=== PATIENT | male | born 1995 | race American Indian/Alaskan Native ===

== ENCOUNTER 2018-08-28 01:49 | Emergency (ER) | payer OTHER ==
[2018-08-28] MEDS ORDERED: cefTRIAXone (Rocephin) 250 mg Inj IM ONE (02:29)
--- NOTE | 2018-08-28 02:39 | ED PDOC ---
HPI: Male Pain Time Seen by Provider: 08/28/18 02:09 Chief Complaint (Nursing): Male Genitourinary Chief Complaint (Provider): testicular pain History Per: Patient Onset/Duration Of Symptoms: Hrs Associated Symptoms: Urinary Symptoms (dysuria). denies: Fever, Chills Alleviating Factors: None Additional Complaint(s): 23 y/o M with hx of schizophrenia who was BIBA to ED for testicular pain. Patient states that he was walking today when he suddenly felt some pain in both of his testicles that became so bad that he fell to the floor. He states that he has been having burning on urination for the past couple of days and admits to having clear/whitish penile discharge. Denies sexual partners or activity. Denies fever, chills, night sweats. Past Medical History Reviewed: Historical Data, Nursing Documentation, Vital Signs Vital Signs: Last Vital Signs Temp 98.0 F 08/28/18 01:53 Pulse 94 H 08/28/18 01:53 Resp 17 08/28/18 01:53 BP 133/89 08/28/18 01:53 Pulse Ox 99 08/28/18 01:53 - Medical History PMH: No Chronic Diseases - Family History Family History: States: Unknown Family Hx - Immunization History Hx Tetanus Toxoid Vaccination: No Hx Influenza Vaccination: No Hx Pneumococcal Vaccination: No - Home Medications Home Medications: Ambulatory Orders Medication Instructions Recorded RX: Naproxen 375 mg PO BID PRN #20 tablet 07/17/18 Cephalexin [cephalexin] 500 mg PO BID 5 Days cap 08/28/18 RX: Ibuprofen [Motrin Tab] 600 mg PO Q6 PRN 5 Days tab 08/28/18 - Allergies Allergies/Adverse Reactions: Allergies Allergy/AdvReac Type Severity Reaction Status Date / Time No Known Allergies Allergy Verified 07/17/18 11:21 Review of Systems ROS Statement: Except As Marked, All Systems Reviewed And Found Negative Constitutional: Negative for: Fever, Chills, Sweats Genitourinary Male: Positive for: Dysuria, Frequency, Penile Discharge, Scrotal Pain. Negative for: Hematuria, Rash Skin: Negative for: Rash Physical Exam - Reviewed Nursing Documentation Reviewed: Yes Vital Signs Reviewed: Yes - Physical Exam Appears: Positive for: Non-toxic (Patient sleeping comfortably on my arrival ) Head Exam: Positive for: ATRAUMATIC Eye Exam: Positive for: EOMI, PERRL, Conjunctival injection (b/l) Male Genital Exam: Positive for: normal genitalia, no hernia. Negative for: epididymal tenderness, erythema, hernia mass, inguinal tenderness, lesions, scrotum tenderness (R), scrotum tenderness (L), testicular tenderness (R), testicular tenderness (L), urethral discharge Neurologic/Psych: Positive for: Alert, Oriented, Mood/Affect (flat) - ECG O2 Sat by Pulse Oximetry: 99 Medical Decision Making Medical Decision Making: Urinalysis, urine culture GC/Chlamydia RNA Rocephin 250mg IM Zithromax 1G PO x 1 U/A: small amount of leukocyte esterase, no nitrites, bacteria. Stable for d/c home with script for Keflex for UTI. Disposition - Clinical Impression Clinical Impression: Testicular/scrotal pain - Patient ED Disposition Is Patient to be Admitted: No Counseled Patient/Family Regarding: Studies Performed, Diagnosis, Need For Followup, Rx Given - Disposition Referrals: Tima Wagner MD [Medical Doctor] - Disposition: Routine/Home Disposition Time: 04:20 Condition: STABLE Additional Instructions: Return to ED if your scrotal pain worsens despite treatment or if you develop fevers/chills/night sweats. Take antibiotics as prescribed for urinary tract infection. Prescriptions: Cephalexin [cephalexin] 500 mg PO BID 5 Days cap RX: Ibuprofen [Motrin Tab] 600 mg PO Q6 PRN 5 Days tab PRN Reason: Pain, Moderate (4-7) Forms: [employer] (Tuvaluan) Print Language: YAKUT
[2018-08-28] MEDS ORDERED: cefTRIAXone (Rocephin) 250 mg Inj ONE (03:46)
[2018-08-28 04:04] LABS: URINE BILIRUBIN NEGATIVE (NEGATIVE); URINE BLOOD NEGATIVE (NEGATIVE); URINE CLARITY SLIGHTY-CLOUDY (Clear); URINE COLOR YELLOW (YELLOW); URINE GLUCOSE (UA) NEG (Normal); URINE LEUKOCYTE ESTERASE SMALL Leu/uL (Negative); URINE PROTEIN NEGATIVE (NEGATIVE); URINE UROBILINOGEN 0.2-1.0 mg/dL (0.2-1.0)
[2018-08-28 04:05] LABS: URINE BACTERIA FEW (<OCC)
[2018-08-28 04:25] VITALS: BP 132/86; PULSE 82; RESP 16; TEMP 98.1
[2018-08-28 06:03] VITALS: O2SAT 99
== END 2018-08-28 04:25 | disposition home or self-care (01) ==
LOC: H.ER 01:49
DX: N50.82 Scrotal pain (principal)
CPT/HCPCS: 81003; 87086; 87491; 87591; 96372; 99283; J0696

== ENCOUNTER 2018-10-01 22:25 | Emergency (ER) | payer OTHER ==
[2018-10-01 22:54] VITALS: BP 141/73; PULSE 94; RESP 16; TEMP 98.5; O2SAT 98
--- NOTE | 2018-10-01 23:09 | ED PDOC ---
HPI: Psych/Substance Abuse Time Seen by Provider: 10/01/18 22:56 Chief Complaint (Nursing): Psychiatric Evaluation Chief Complaint (Provider): Psychiatric Evaluation History Per: Patient History/Exam Limitations: no limitations Additional Complaint(s): Patient is a 23 year old male who presents to the ED requesting psychiatric admission. Patient reports that he has "not been feeling well". Patient will not elaborate further but does admit to racing thoughts and "feeling down". Patient states he has "mind issues". Patient reports a history of multiple psychiatric admissions. Patient denies SI, HI, A/V hallucinations. No physical complaints at present. PMD: Concepcion Past Medical History Reviewed: Historical Data, Nursing Documentation, Vital Signs Vital Signs: Last Vital Signs Temp 98.5 F 10/01/18 22:48 Pulse 94 H 10/01/18 22:48 Resp 16 10/01/18 22:48 BP 141/73 10/01/18 22:48 Pulse Ox 98 10/01/18 22:48 - Medical History PMH: Depression, Schizophrenia - Surgical History Surgical History: No Surg Hx - Family History Family History: States: Unknown Family Hx - Social History Drugs: Denies - Home Medications Home Medications: Ambulatory Orders Medication Instructions Recorded Naproxen 375 mg PO BID PRN #20 tablet 07/17/18 Cephalexin [cephalexin] 500 mg PO BID 5 Days cap 08/28/18 Ibuprofen [Motrin Tab] 600 mg PO Q6 PRN 5 Days tab 08/28/18 - Allergies Allergies/Adverse Reactions: Allergies Allergy/AdvReac Type Severity Reaction Status Date / Time No Known Allergies Allergy Verified 07/17/18 11:21 Review of Systems ROS Statement: Except As Marked, All Systems Reviewed And Found Negative Psych: Positive for: Other ("feeling down") Physical Exam - Reviewed Nursing Documentation Reviewed: Yes Vital Signs Reviewed: Yes - Physical Exam Appears: Positive for: Well, Non-toxic, No Acute Distress Head Exam: Positive for: NORMOCEPHALIC Skin: Positive for: Normal Color, Warm, Dry ENT: Positive for: Other (Mucus membranes moist. Airway patent, (-) stridor. ) Neck: Positive for: Painless ROM, Supple Cardiovascular/Chest: Positive for: Regular Rate, Rhythm Respiratory: Positive for: Normal Breath Sounds Gastrointestinal/Abdominal: Positive for: Soft. Negative for: Tenderness, Distended, Guarding Extremity: Positive for: Normal ROM. Negative for: Deformity Neurologic/Psych: Positive for: Alert, Oriented (x3), Gait (steady in ED). Negative for: Aphasia, Facial Droop - ECG O2 Sat by Pulse Oximetry: 98 (RA) Pulse Ox Interpretation: Normal Medical Decision Making Medical Decision Makin Initial Impression: psychiatric evaluation Plan: -Crisis evaluation -Re-evaluation 001 Per crisis evaluation, patient to be discharged with the diagnosis of Schizoaffective Disorder, per Dr Wise. On exam, patient remains AAOx3, in no acute distress. Vitals stable. Lab/Diagnostic results d/w the patient in great detail. Diagnosis of schizoaffective disorder d/w the patient. Based on history, exam and diagnostic results, plan will be for outpatient follow up as directed by crisis. Patient instructed to follow-up with pmd / referral provided / the clinic in 1- 2 days without fail. Return to the emergency room at any time for any new or worsening symptoms. Patient states he fully agrees with and understands discharge instructions. States that he agrees with the plan and disposition. Verbalized and repeated discharge instructions and plan. I have given the patient opportunity to ask any additional questions. Disposition - Clinical Impression Clinical Impression: Schizoaffective disorder - Patient ED Disposition Is Patient to be Admitted: No Counseled Patient/Family Regarding: Studies Performed, Diagnosis, Need For Followup - Disposition Referrals: [facility] [Outside] [facility] [Outside] Disposition: Routine/Home Disposition Time: 00:10 Condition: STABLE Additional Instructions: The emergency medical care you received today was directed at your acute symptoms. If you were prescribed any medication, please fill it and take as directed. It may take several days for your symptoms to resolve. Return to the Emergency Department if your symptoms worsen, do not improve, or if you have any other problems. Please contact your doctor in 2 days for re-evaluation and follow up / or call one of the physicians/clinics you have been referred to that are listed on the Patient Visit Information form that is included in your discharge packet. Bring any paperwork you were given at discharge with you along with any medications you are taking to your follow up visit. Our treatment cannot replace ongoing medical care by a primary care provider (PCP) outside of the emergency department. Instructions: Schizoaffective Disorder Forms: [email or web address] (Albanian) Print Language: MOSOTHO - POA Present On Arrival: None
== END 2018-10-02 01:15 | disposition home or self-care (01) ==
LOC: H.ER 22:25
DX: F25.9 Schizoaffective disorder, unspecified (principal); Z86.59 Personal history of other mental and behavioral disorders; Z00.8 Encounter for other general examination

== ENCOUNTER 2018-10-06 07:18 | Emergency (ER) | payer OTHER ==
[2018-10-06 07:22] VITALS: BMI 26.3
--- NOTE | 2018-10-06 07:45 | ED PDOC ---
HPI: Psych/Substance Abuse Time Seen by Provider: 10/06/18 07:37 Chief Complaint (Provider): Psychiatric evaluation History Per: Patient History/Exam Limitations: no limitations Current Symptoms Are (Timing): Still Present Associated Symptoms: denies: Depression, Suicidal Thoughts Additional Complaint(s): 23 year old homeless male, with a past medical history of schizophrenia, presents to the ED requesting psychiatric evaluation because he does not feel right in the mind and states he is not acting normally. He reports he has been compliant with his medications. Denies depression, suicidal ideation, or hallucinations. PMD: none Past Medical History Reviewed: Historical Data, Nursing Documentation, Vital Signs Vital Signs: Last Vital Signs Temp 97.6 F 10/06/18 07:21 Pulse 102 H 10/06/18 07:21 Resp 17 10/06/18 07:21 BP 124/70 10/06/18 07:21 Pulse Ox 96 10/06/18 07:21 - Medical History PMH: Depression, Schizophrenia Denies: Diabetes, Hepatitis, HIV, HTN, Seizures, Sexually Transmitted Disease - Surgical History Surgical History: No Surg Hx - Family History Family History: States: Unknown Family Hx - Immunization History Hx Tetanus Toxoid Vaccination: No Hx Influenza Vaccination: No Hx Pneumococcal Vaccination: No - Home Medications Home Medications: Ambulatory Orders Medication Instructions Recorded Naproxen 375 mg PO BID PRN #20 tablet 07/17/18 Cephalexin [cephalexin] 500 mg PO BID 5 Days cap 08/28/18 Ibuprofen [Motrin Tab] 600 mg PO Q6 PRN 5 Days tab 08/28/18 - Allergies Allergies/Adverse Reactions: Allergies Allergy/AdvReac Type Severity Reaction Status Date / Time No Known Allergies Allergy Verified 07/17/18 11:21 Review of Systems ROS Statement: Except As Marked, All Systems Reviewed And Found Negative Psych: Negative for: Depression, Suicidal ideation, Other (hallucinations) Physical Exam - Reviewed Nursing Documentation Reviewed: Yes Vital Signs Reviewed: Yes - Physical Exam Appears: Positive for: No Acute Distress. Negative for: Uncomfortable Head Exam: Positive for: ATRAUMATIC, NORMOCEPHALIC Skin: Positive for: Normal Color, Dry Eye Exam: Positive for: Normal appearance, EOMI Neck: Positive for: Normal, Painless ROM Extremity: Positive for: Normal ROM Neurologic/Psych: Positive for: Alert, Oriented (x3), Gait (steady) - ECG O2 Sat by Pulse Oximetry: 96 (RA) Pulse Ox Interpretation: Normal Medical Decision Making Medical Decision Making: Initial Impression: Request for psychiatric evaluation. Differential includes schizophrenia. Initial Plan: crisis eval Per general scrap worker patient is discharged with dx anxiety. Scribe Attestation: Documented by Franko Rogers acting as a scribe for John Menezes MD. Provider Scribe Attestation: All medical record entries made by the Scribe were at my direction and personally dictated by me. I have reviewed the chart and agree that the record accurately reflects my personal performance of the history, physical exam, medical decision making, and the department course for this patient. I have also personally directed, reviewed, and agree with the discharge instructions and disposition. Disposition - Clinical Impression Clinical Impression: Anxiety - Patient ED Disposition Is Patient to be Admitted: No Doctor Will See Patient In The: Office Counseled Patient/Family Regarding: Studies Performed, Diagnosis, Need For Followup - Disposition Referrals: [facility] [Outside] Disposition: Routine/Home Disposition Time: 10:24 Condition: GOOD Additional Instructions: BETO BAIN, thank you for letting us take care of you today. Your provider was John Menezes MD and you were treated for CRISIS EVAL. The emergency medical care you received today was directed at your acute symptoms. If you were prescribed any medication, please fill it and take as directed. It may take several days for your symptoms to resolve. Return to the Emergency Department if your symptoms worsen, do not improve, or if you have any other problems. Please contact your doctor or call one of the physicians/clinics you have been referred to that are listed on the Patient Visit Information form that is included in your discharge packet. Bring any paperwork you were given at discharge with you along with any medications you are taking to your follow up visit. Our treatment cannot replace ongoing medical care by a primary care provider outside of the emergency department. [facility] your care today. If you had an X-Ray or CT scan: A Radiologist will review the ED reading if any change in treatment is needed we will contact you. If you had a blood, urine, or wound culture: It will take several days for the results, if any change in treatment is needed we will contact you. If you had an STI test: It will take 48 hours for the results. Please call after 1 week if you have not heard back. Instructions: Anxiety, Adult (DC)
[2018-10-06 11:15] VITALS: BP 128/67; PULSE 76; RESP 18; TEMP 98; O2SAT 99
== END 2018-10-06 11:12 | disposition home or self-care (01) ==
LOC: H.ER 07:18
DX: F41.9 Anxiety disorder, unspecified (principal)

== ENCOUNTER 2018-10-10 22:04 | Emergency (ER) | payer OTHER ==
[2018-10-10 22:04] VITALS: BMI 26.3
[2018-10-10 22:37] VITALS: BP 121/79; PULSE 82; RESP 16; TEMP 98; O2SAT 98
--- NOTE | 2018-10-10 23:32 | ED PDOC ---
HPI: Psych/Substance Abuse Time Seen by Provider: 10/10/18 22:40 Chief Complaint (Nursing): Psychiatric Evaluation Chief Complaint (Provider): Psychiatric Evaluation History Per: Patient History/Exam Limitations: no limitations Associated Symptoms: Paranoia. denies: Suicidal Thoughts, Suicidal Plan Additional Complaint(s): 23 y/o male with history of schizophrenia reports having visual hallucinations. Patient reports he sees shadows. He also reports feeling paranoid, feels as if someone is watching him, while watching TV. He denies HI or SI but does report feeling aggressive at times. Patient states he is somewhat compliant with invega consta. Past Medical History Reviewed: Historical Data, Nursing Documentation, Vital Signs Vital Signs: Last Vital Signs Temp 98.0 F 10/10/18 22:35 Pulse 82 10/10/18 22:35 Resp 16 10/10/18 22:35 BP 121/79 10/10/18 22:35 Pulse Ox 98 10/10/18 22:35 - Medical History PMH: Depression, Schizophrenia Denies: Diabetes, Hepatitis, HIV, HTN, Seizures, Sexually Transmitted Disease - Surgical History Surgical History: No Surg Hx - Family History Family History: States: Unknown Family Hx - Social History Current smoker - smoking cessation education provided: Yes (occasional) - Immunization History Hx Tetanus Toxoid Vaccination: No Hx Influenza Vaccination: No Hx Pneumococcal Vaccination: No - Home Medications Home Medications: Ambulatory Orders Medication Instructions Recorded Naproxen 375 mg PO BID PRN #20 tablet 07/17/18 Cephalexin [cephalexin] 500 mg PO BID 5 Days cap 08/28/18 Ibuprofen [Motrin Tab] 600 mg PO Q6 PRN 5 Days tab 08/28/18 - Allergies Allergies/Adverse Reactions: Allergies Allergy/AdvReac Type Severity Reaction Status Date / Time No Known Allergies Allergy Verified 07/17/18 11:21 Review of Systems ROS Statement: Except As Marked, All Systems Reviewed And Found Negative Psych: Positive for: Psychosis (visual), Other (aggression). Negative for: Suicidal ideation Physical Exam - Reviewed Nursing Documentation Reviewed: Yes Vital Signs Reviewed: Yes - Physical Exam Appears: Positive for: Well, Non-toxic, No Acute Distress Head Exam: Positive for: ATRAUMATIC, NORMOCEPHALIC Skin: Positive for: Normal Color, Warm, Dry Eye Exam: Positive for: EOMI, Normal appearance, PERRL Neck: Positive for: Normal, Painless ROM, Supple Cardiovascular/Chest: Positive for: Regular Rate, Rhythm. Negative for: Murmur Respiratory: Positive for: Normal Breath Sounds. Negative for: Respiratory Distress Gastrointestinal/Abdominal: Positive for: Normal Exam, Soft. Negative for: Tenderness Back: Positive for: Normal Inspection. Negative for: L CVA Tenderness, R CVA Tenderness, Vertebral Tenderness Extremity: Positive for: Normal ROM. Negative for: Pedal Edema, Deformity Neurologic/Psych: Positive for: Alert, Oriented. Negative for: Motor/Sensory Deficits - ECG O2 Sat by Pulse Oximetry: 98 (RA) Pulse Ox Interpretation: Normal Medical Decision Making Medical Decision Making: Time: 22:47 Initial Impression: 23 y/o male with crisis evaluation Initial Plan: * Crisis evaluation 00:05 Patient was evaluated by Crisis. Patient is stable for discharge. Diagnosis is schizophrenia. --- Scribe Attestation: Documented by John Grimm acting as a scribe for Govind Lutz MD. Provider Scribe Attestation: All medical record entries made by the Scribe were at my direction and personally dictated by me. I have reviewed the chart and agree that the record accurately reflects my personal performance of the history, physical exam, medical decision making, and the department course for this patient. I have also personally directed, reviewed, and agree with the discharge instructions and disposition. Disposition - Clinical Impression Clinical Impression: Schizophrenia - Patient ED Disposition Is Patient to be Admitted: No - Disposition Disposition: Routine/Home Disposition Time: 00:05 Condition: STABLE Additional Instructions: BETO BAIN, thank you for letting us take care of you today. Your provider was Govind Lutz MD and you were treated for PSYCH EVAL. The emergency medical care you received today was directed at your acute symptoms. If you were prescribed any medication, please fill it and take as directed. It may take several days for your symptoms to resolve. Return to the Emergency Department if your symptoms worsen, do not improve, or if you have any other problems. Please contact your doctor or call one of the physicians/clinics you have been referred to that are listed on the Patient Visit Information form that is included in your discharge packet. Bring any paperwork you were given at disch arge with you along with any medications you are taking to your follow up visit. Our treatment cannot replace ongoing medical care by a primary care provider outside of the emergency department. Thank you for allowing the [email or web address] team to be part of your care today. If you had an X-Ray or CT scan: A Radiologist will review the ED reading if any change in treatment is needed we will contact you. If you had a blood, urine, or wound culture: It will take several days for the results, if any change in treatment is needed we will contact you. If you had an STI test: It will take 48 hours for the results. Please call after 1 week if you have not heard back. Instructions: Schizophrenia Forms: [employer] (Botswanan)
== END 2018-10-11 00:17 | disposition home or self-care (01) ==
LOC: H.ER 22:04
DX: F20.9 Schizophrenia, unspecified (principal)

== ENCOUNTER 2018-10-11 22:37 | Emergency (ER) | payer OTHER ==
[2018-10-11 22:37] VITALS: BMI 26.3
[2018-10-11 23:01] VITALS: TEMP 97.8
--- NOTE | 2018-10-11 23:15 | ED PDOC ---
HPI: Psych/Substance Abuse Time Seen by Provider: 10/11/18 23:09 Chief Complaint (Nursing): Psychiatric Evaluation Chief Complaint (Provider): "I'm stressing out" Additional Complaint(s): Pt reports he is stressing out since becoming homeless couple weeks ago. Denies suicidal or homicidal ideation. Past Medical History Reviewed: Nursing Documentation, Vital Signs Vital Signs: Last Vital Signs Temp 97.8 F 10/11/18 22:57 Pulse 78 10/11/18 22:57 Resp 18 10/11/18 22:57 BP 120/83 10/11/18 22:57 Pulse Ox 99 10/11/18 22:57 - Medical History PMH: Depression, Schizophrenia Denies: Diabetes, Hepatitis, HIV, HTN, Seizures, Sexually Transmitted Disease - Family History Family History: States: Unknown Family Hx - Immunization History Hx Tetanus Toxoid Vaccination: No Hx Influenza Vaccination: No Hx Pneumococcal Vaccination: No - Home Medications Home Medications: Ambulatory Orders Medication Instructions Recorded Naproxen 375 mg PO BID PRN #20 tablet 07/17/18 Cephalexin [cephalexin] 500 mg PO BID 5 Days cap 08/28/18 Ibuprofen [Motrin Tab] 600 mg PO Q6 PRN 5 Days tab 08/28/18 - Allergies Allergies/Adverse Reactions: Allergies Allergy/AdvReac Type Severity Reaction Status Date / Time No Known Allergies Allergy Verified 10/13/18 01:45 Review of Systems ROS Statement: Except As Marked, All Systems Reviewed And Found Negative Psych: Positive for: Anxiety Physical Exam - Reviewed Nursing Documentation Reviewed: Yes Vital Signs Reviewed: Yes - Physical Exam Appears: Positive for: Well, No Acute Distress Skin: Positive for: Normal Color, Warm, Dry Eye Exam: Positive for: Normal appearance, EOMI, PERRL Cardiovascular/Chest: Positive for: Regular Rate, Rhythm Respiratory: Positive for: Normal Breath Sounds Neurologic/Psych: Positive for: Alert, Oriented - ECG O2 Sat by Pulse Oximetry: 99 Medical Decision Making Medical Decision Makin yo male with stress. - Crisis evaluation Disposition - Clinical Impression Clinical Impression: Schizophrenia - Disposition Disposition: Transfer of Care Disposition Time: 00:00 Condition: STABLE Instructions: Schizophrenia Forms: [employer] (Macedonian) Patient Signed Over To: Govind Lutz
--- NOTE | 2018-10-12 00:06 | ED PDOC ---
- ECG O2 Sat by Pulse Oximetry: 99 Medical Decision Making Medical Decision Making: Time: 00:00 --Patient endorsed to provider by Dr. Nash, pending crisis evaluation and re- eval. Time: 4 --Patient was evaluated by forensic social worker and deemed medically stable for discharge home, as per Dr. Orlando. Counseling was provided and all questions were answered regarding diagnosis. There is agreement to discharge plan. Return if symptoms persist or worsen. Clinical Impression: Schizophrenia Scribe Attestation: Documented by Johnna Gamez, acting as a scribe for Govind Lutz MD. Provider Scribe Attestation: All medical record entries made by the Scribe were at my direction and personally dictated by me. I have reviewed the chart and agree that the record accurately reflects my personal performance of the history, physical exam, medical decision making, and the department course for this patient. I have also personally directed, reviewed, and agree with the discharge instructions and disposition. Disposition Counseled Patient/Family Regarding: Studies Performed, Diagnosis - Clinical Impression Clinical Impression: Schizophrenia - POA Present On Arrival: None - Disposition Disposition: Routine/Home Disposition Time: 01:54 Condition: STABLE Instructions: Schizophrenia Forms: [email or web address] (Montenegrin)
[2018-10-12 04:51] VITALS: BP 124/81; PULSE 79; RESP 16
[2018-10-13 16:55] VITALS: O2SAT 99
== END 2018-10-12 04:52 | disposition home or self-care (01) ==
LOC: H.ER 22:37
DX: F20.9 Schizophrenia, unspecified (principal); Z59.0 Homelessness; F32.9 Major depressive disorder, single episode, unspecified

== ENCOUNTER 2018-10-13 01:27 | Emergency (ER) | payer OTHER ==
[2018-10-13 01:45] VITALS: BMI 27.6
[2018-10-13 01:47] VITALS: BP 122/62; PULSE 85; RESP 18; TEMP 97.9; O2SAT 98
--- NOTE | 2018-10-13 05:37 | ED PDOC ---
HPI: Psych/Substance Abuse Time Seen by Provider: 10/13/18 01:49 Chief Complaint (Nursing): Psychiatric Evaluation History Per: Patient Suicide/Self Injury Attempted (Context): None Involuntary Hold By: None Additional Complaint(s): Hx of schiophrenia presenting with "i need to sleep". Patient has no other complaints, denies hearing voices, suicidal or homicidal ideation. Past Medical History Reviewed: Historical Data, Nursing Documentation, Vital Signs Vital Signs: Last Vital Signs Temp 97.9 F 10/13/18 01:45 Pulse 85 10/13/18 01:45 Resp 18 10/13/18 01:45 BP 122/62 10/13/18 01:45 Pulse Ox 98 10/13/18 01:45 - Medical History PMH: Depression, Schizophrenia Denies: Diabetes, Hepatitis, HIV, HTN, Chronic Kidney Disease, Seizures, Sexually Transmitted Disease - Family History Family History: States: Unknown Family Hx - Immunization History Hx Tetanus Toxoid Vaccination: No Hx Influenza Vaccination: No Hx Pneumococcal Vaccination: No - Home Medications Home Medications: Ambulatory Orders Medication Instructions Recorded Naproxen 375 mg PO BID PRN #20 tablet 07/17/18 Cephalexin [cephalexin] 500 mg PO BID 5 Days cap 08/28/18 Ibuprofen [Motrin Tab] 600 mg PO Q6 PRN 5 Days tab 08/28/18 - Allergies Allergies/Adverse Reactions: Allergies Allergy/AdvReac Type Severity Reaction Status Date / Time No Known Allergies Allergy Verified 10/13/18 01:45 Review of Systems ROS Statement: Except As Marked, All Systems Reviewed And Found Negative Physical Exam - Reviewed Nursing Documentation Reviewed: Yes Vital Signs Reviewed: Yes - Physical Exam Appears: Positive for: Well, Non-toxic, No Acute Distress Head Exam: Positive for: ATRAUMATIC, NORMAL INSPECTION, NORMOCEPHALIC Skin: Positive for: Normal Color, Warm, DRY Eye Exam: Positive for: EOMI, Normal appearance, PERRL ENT: Positive for: Normal ENT Inspection Neck: Positive for: Normal, Painless ROM Cardiovascular/Chest: Positive for: Regular Rate, Rhythm Respiratory: Positive for: CNT, Normal Breath Sounds Gastrointestinal/Abdominal: Positive for: Normal Exam, Soft Back: Positive for: Normal Inspection Extremity: Positive for: Normal ROM Neurologic/Psych: Positive for: Alert, java architect II-XII, Oriented, Mood/Affect ( Normal). Negative for: Motor/Sensory Deficits - ECG O2 Sat by Pulse Oximetry: 98 Pulse Ox Interpretation: Normal Medical Decision Making Medical Decision MakinAM Patient presenting with bed seeking behavior Stable for discharge No acute medical/psychiatric intervention necessary at this time Disposition - Clinical Impression Clinical Impression: Schizoaffective disorder - Patient ED Disposition Is Patient to be Admitted: No - Disposition Referrals: [facility] [Outside] Disposition: Routine/Home Disposition Time: 05:37 Condition: STABLE Instructions: Schizoaffective Disorder
== END 2018-10-13 06:37 | disposition home or self-care (01) ==
LOC: H.ER 01:27
DX: F25.9 Schizoaffective disorder, unspecified (principal)

== ENCOUNTER 2018-10-19 20:26 | Emergency (ER) | payer OTHER ==
[2018-10-19 21:14] VITALS: BMI 27.4
[2018-10-19 21:16] VITALS: BP 117/73; PULSE 80; RESP 18; TEMP 98.3; O2SAT 98
--- NOTE | 2018-10-19 23:06 | ED PDOC ---
HPI: Psych/Substance Abuse Time Seen by Provider: 10/19/18 22:45 Chief Complaint (Nursing): Psychiatric Evaluation History Per: Patient Onset/Duration Of Symptoms: Unknown Current Symptoms Are (Timing): Still Present Suicide/Self Injury Attempted (Context): None Modifying Factor(s): None Associated Symptoms: denies: Suicidal Thoughts Additional Complaint(s): Admits to auditory hallucinations earlier today but unclear as to duration of hallucinations. denies SI/HI. States that he has high BP and has difficulty concentrating Past Medical History Vital Signs: Last Vital Signs Temp 98.3 F 10/19/18 21:14 Pulse 80 10/19/18 21:14 Resp 18 10/19/18 21:14 BP 117/73 10/19/18 21:14 Pulse Ox 98 10/19/18 21:14 - Medical History PMH: Depression, Schizophrenia Denies: Diabetes, Hepatitis, HIV, HTN, Chronic Kidney Disease, Seizures, Sexually Transmitted Disease - Family History Family History: States: Unknown Family Hx - Immunization History Hx Tetanus Toxoid Vaccination: No Hx Influenza Vaccination: No Hx Pneumococcal Vaccination: No - Home Medications Home Medications: Ambulatory Orders Medication Instructions Recorded Naproxen 375 mg PO BID PRN #20 tablet 07/17/18 Cephalexin [cephalexin] 500 mg PO BID 5 Days cap 08/28/18 Ibuprofen [Motrin Tab] 600 mg PO Q6 PRN 5 Days tab 08/28/18 - Allergies Allergies/Adverse Reactions: Allergies Allergy/AdvReac Type Severity Reaction Status Date / Time No Known Allergies Allergy Verified 10/19/18 21:13 Review of Systems ROS Statement: Except As Marked, All Systems Reviewed And Found Negative Physical Exam - Reviewed Nursing Documentation Reviewed: Yes Vital Signs Reviewed: Yes - Physical Exam Appears: Positive for: Non-toxic, No Acute Distress Head Exam: Positive for: ATRAUMATIC, NORMAL INSPECTION, NORMOCEPHALIC Skin: Positive for: Normal Color, Warm, DRY Eye Exam: Positive for: EOMI, Normal appearance, PERRL ENT: Positive for: Normal ENT Inspection Neck: Positive for: Normal, Painless ROM Cardiovascular/Chest: Positive for: Regular Rate, Rhythm Respiratory: Positive for: CNT, Normal Breath Sounds Gastrointestinal/Abdominal: Positive for: Normal Exam, Soft Back: Positive for: Normal Inspection Extremity: Positive for: Normal ROM Neurologic/Psych: Positive for: Alert, Oriented - ECG O2 Sat by Pulse Oximetry: 98 Disposition - Disposition
--- NOTE | 2018-10-20 00:18 | ED PDOC ---
- Laboratory Results Result Diagrams: 10/19/18 23:25 10/19/18 23:25 - ECG O2 Sat by Pulse Oximetry: 98 (RA) Pulse Ox Interpretation: Normal Medical Decision Making Medical Decision Making: Time: 0000 -- Patient endorsed to me by Dr. Adams, pending labs, crisis evaluation and final ER disposition. 0300 -Sleeping in ER 0600 -Cleared by Dr. Wise with diagnosis: schizophrenia Scribe Attestation: Documented by Shandra Marsh, acting as a scribe for Maikol Monahan MD. Provider Scribe Attestation: All medical record entries made by the Scribe were at my direction and personally dictated by me. I have reviewed the chart and agree that the record accurately reflects my personal performance of the history, physical exam, medical decision making, and the department course for this patient. I have also personally directed, reviewed, and agree with the discharge instructions and disposition. Disposition - Clinical Impression Clinical Impression: Schizophrenia - POA Present On Arrival: None - Disposition Referrals: Liliya Grover MD [Family Provider] - Disposition: Routine/Home Disposition Time: 06:00 Condition: IMPROVED Instructions: Schizophrenia Forms: [employer] (Croatian)
[2018-10-20 00:25] LABS: BASO % 0.4 % (0.0-2.0); EOS # 0.3 K/uL (0.0-0.7); EOS % 5.2 % (0.0-4.0); HEMOGLOBIN 13.6 g/dL (12.0-18.0); LYMPH # 3.5 K/uL (1.0-4.3); LYMPH % 55.1 % (20.0-40.0); MEAN CELL VOLUME 86.2 fl (80.0-94.0); MEAN CORPUSCULAR HEMOGLOBIN 28.5 pg (27.0-31.0); MEAN CORPUSCULAR HGB CONC 33.1 g/dL (33.0-37.0); MONO # 0.6 K/uL (0.0-0.8); MONO % 9.8 % (0.0-10.0); NEUT # 1.9 K/uL (1.8-7.0); NEUT % 29.5 % (50.0-75.0); NRBC % 0.1 % (0.0-0.0); RBC 4.78 Mil/uL (4.40-5.90); RED CELL DISTRIBUTION WIDTH 13.9 % (11.5-14.5); WHITE BLOOD COUNT 6.4 K/uL (4.8-10.8)
[2018-10-20 00:41] LABS: ALB/GLOB RATIO 1.4 (1.0-2.1); ALBUMIN 4.1 g/dL (3.5-5.0); ALT/SGPT 52 U/L (21-72); AST/SGOT 41 U/L (17-59); BLOOD UREA NITROGEN 18 mg/dl (9-20); GFR NON-AFRICAN AMERICAN > 60
[2018-10-20 00:54] LABS: BARBITURATES, UR NEGATIVE (NEGATIVE); BENZODIAZEPINES, UR NEGATIVE (NEGATIVE); OPIATES, UR NEGATIVE (NEGATIVE); PHENCYCLIDINE, UR NEGATIVE (NEGATIVE)
--- NOTE | 2018-10-20 12:55 | CARD ---
APPROVED REPORT Date of service: 10/20/2018 EKG Measurement Heart [id number] <Conclusion> Sinus rhythm with marked sinus arrhythmia Normal Electrocardiogram
== END 2018-10-20 06:23 | disposition home or self-care (01) ==
LOC: H.ER 20:26
DX: F20.9 Schizophrenia, unspecified (principal); F32.9 Major depressive disorder, single episode, unspecified

== ENCOUNTER 2018-10-21 22:20 | Emergency (ER) | payer OTHER ==
[2018-10-21 22:20] VITALS: BMI 27.4
[2018-10-21 22:57] VITALS: TEMP 98.2; O2SAT 99
--- NOTE | 2018-10-22 01:01 | ED PDOC ---
HPI: Psych/Substance Abuse Time Seen by Provider: 10/21/18 22:57 Chief Complaint (Nursing): Psychiatric Evaluation Chief Complaint (Provider): Psychiatric Evaluation History Per: Patient History/Exam Limitations: no limitations Onset/Duration Of Symptoms: Hrs Current Symptoms Are (Timing): Still Present Additional Complaint(s): 23 y/o homeless male with a PMHx of Schizophrenia and Depression presents to the ED for psychiatric evaluation. Patient is known to provider and ED staff for bed seeking behavior. Patient reports of being nervous and anxious. PMD: no provider Past Medical History Reviewed: Historical Data, Nursing Documentation, Vital Signs Vital Signs: Last Vital Signs Temp 98.2 F 10/21/18 22:55 Pulse 93 H 10/21/18 22:55 Resp 18 10/21/18 22:55 BP 149/64 10/21/18 22:55 Pulse Ox 99 10/21/18 22:55 - Medical History PMH: Depression, Schizophrenia Denies: Diabetes, Hepatitis, HIV, HTN, Chronic Kidney Disease, Seizures, Sexually Transmitted Disease - Surgical History Surgical History: No Surg Hx - Family History Family History: States: Unknown Family Hx - Living Arrangements Living Arrangements: Other (HOMELESS) - Immunization History Hx Tetanus Toxoid Vaccination: No Hx Influenza Vaccination: No Hx Pneumococcal Vaccination: No - Home Medications Home Medications: Ambulatory Orders Medication Instructions Recorded Naproxen 375 mg PO BID PRN #20 tablet 07/17/18 Cephalexin [cephalexin] 500 mg PO BID 5 Days cap 08/28/18 Ibuprofen [Motrin Tab] 600 mg PO Q6 PRN 5 Days tab 08/28/18 - Allergies Allergies/Adverse Reactions: Allergies Allergy/AdvReac Type Severity Reaction Status Date / Time No Known Allergies Allergy Verified 10/19/18 21:13 Review of Systems ROS Statement: Except As Marked, All Systems Reviewed And Found Negative Psych: Positive for: Anxiety Physical Exam - Reviewed Nursing Documentation Reviewed: Yes Vital Signs Reviewed: Yes - Physical Exam Appears: Positive for: No Acute Distress Head Exam: Positive for: ATRAUMATIC, NORMOCEPHALIC Skin: Positive for: Normal Color, Warm, Dry Eye Exam: Positive for: Normal appearance, EOMI, PERRL Neck: Positive for: Normal, Painless ROM Cardiovascular/Chest: Positive for: Regular Rate, Rhythm. Negative for: Murmur Respiratory: Positive for: Normal Breath Sounds. Negative for: Respiratory Distress Gastrointestinal/Abdominal: Positive for: Normal Exam, Soft. Negative for: Tenderness Back: Positive for: Normal Inspection. Negative for: L CVA Tenderness, R CVA Tenderness, Vertebral Tenderness Extremity: Positive for: Normal ROM. Negative for: Pedal Edema, Deformity Neurologic/Psych: Positive for: Alert, Oriented. Negative for: Motor/Sensory Deficits - ECG O2 Sat by Pulse Oximetry: 99 (RA) Pulse Ox Interpretation: Normal Medical Decision Making Medical Decision Making: Time: 2257 Impression: 23 y/o homeless male presenting with bed seeking behavior Plan: -- EKG -- Crisis Evaluation Time: 336 -- Patient evaluated by crisis who state patient is stable for discharge home with a diagnosis of schizophrenia. Scribe Attestation: Documented by Shandra Marsh, acting as a scribe for Govind Lutz MD. Provider Scribe Attestation: All medical record entries made by the Scribe were at my direction and personally dictated by me. I have reviewed the chart and agree that the record accurately reflects my personal performance of the history, physical exam, medical decision making, and the department course for this patient. I have also personally directed, reviewed, and agree with the discharge instructions and disposition. Disposition - Clinical Impression Clinical Impression: Schizophrenia - Patient ED Disposition Is Patient to be Admitted: No Counseled Patient/Family Regarding: Studies Performed, Diagnosis - Disposition Disposition: Routine/Home Disposition Time: 03:37 Condition: STABLE Instructions: Schizophrenia Forms: [employer] (Surinamese)
[2018-10-22 06:56] VITALS: BP 137/63; PULSE 81; RESP 17
--- NOTE | 2018-10-22 09:14 | CARD ---
APPROVED REPORT Date of service: 10/22/2018 EKG Measurement Heart [id number] <Conclusion> Normal sinus rhythm Normal ECG
== END 2018-10-22 05:52 | disposition home or self-care (01) ==
LOC: H.ER 22:20
DX: F20.9 Schizophrenia, unspecified (principal); Z86.59 Personal history of other mental and behavioral disorders; Z59.0 Homelessness; Z00.8 Encounter for other general examination

== ENCOUNTER 2018-10-25 21:51 | Emergency (ER) | payer OTHER ==
[2018-10-25 21:52] VITALS: BMI 27.4
[2018-10-25 22:05] VITALS: RESP 18; O2SAT 99
--- NOTE | 2018-10-25 23:05 | ED PDOC ---
HPI: Psych/Substance Abuse Time Seen by Provider: 10/25/18 22:17 Chief Complaint (Nursing): Psychiatric Evaluation Chief Complaint (Provider): Psychiatric Evaluation History Per: Patient History/Exam Limitations: no limitations Current Symptoms Are (Timing): Still Present Additional Complaint(s): 23 y/o homeless male with a PMHx of Schizophrenia and Depression presents to the ED for psychiatric evaluation. Patient is known to provider and ED staff for bed seeking behavior. Patient reports auditory hallucinations. PMD: no provider Past Medical History Reviewed: Historical Data, Nursing Documentation, Vital Signs Vital Signs: Last Vital Signs Temp 98.3 F 10/25/18 22:03 Pulse 86 10/25/18 22:03 Resp 18 10/25/18 22:03 BP 142/76 10/25/18 22:03 Pulse Ox 99 10/25/18 22:03 - Medical History PMH: Depression, Schizophrenia Denies: Diabetes, Hepatitis, HIV, HTN, Chronic Kidney Disease, Seizures, Sexually Transmitted Disease - Surgical History Surgical History: No Surg Hx - Family History Family History: States: Unknown Family Hx - Immunization History Hx Tetanus Toxoid Vaccination: No Hx Influenza Vaccination: No Hx Pneumococcal Vaccination: No - Home Medications Home Medications: Ambulatory Orders Medication Instructions Recorded Naproxen 375 mg PO BID PRN #20 tablet 07/17/18 Cephalexin [cephalexin] 500 mg PO BID 5 Days cap 08/28/18 Ibuprofen [Motrin Tab] 600 mg PO Q6 PRN 5 Days tab 08/28/18 - Allergies Allergies/Adverse Reactions: Allergies Allergy/AdvReac Type Severity Reaction Status Date / Time No Known Allergies Allergy Verified 10/19/18 21:13 Review of Systems ROS Statement: Except As Marked, All Systems Reviewed And Found Negative Psych: Positive for: Other (auditory hallucinations) Physical Exam - Reviewed Nursing Documentation Reviewed: Yes Vital Signs Reviewed: Yes - Physical Exam Appears: Positive for: Non-toxic, No Acute Distress Head Exam: Positive for: ATRAUMATIC, NORMOCEPHALIC Skin: Positive for: Normal Color, Warm, Dry Eye Exam: Positive for: EOMI, Normal appearance, PERRL Neck: Positive for: Normal, Painless ROM Cardiovascular/Chest: Positive for: Regular Rate, Rhythm Respiratory: Positive for: Normal Breath Sounds. Negative for: Respiratory Distress Gastrointestinal/Abdominal: Positive for: Normal Exam, Soft. Negative for: Tenderness Back: Positive for: Normal Inspection Extremity: Positive for: Normal ROM (upper and lower). Negative for: Pedal Edema, Deformity Neurologic/Psych: Positive for: Alert, Oriented (x3). Negative for: Motor/Sensory Deficits - ECG O2 Sat by Pulse Oximetry: 99 (RA) Pulse Ox Interpretation: Normal Medical Decision Making Medical Decision Making: Time: 2217 Impression: 23 y/o homeless male presenting with bed seeking behavior Plan: -- Crisis Evaluation Time: 141 --Patient cleared by Crisis. Stable for discharge home, diagnosis schizophrenia. Scribe Attestation: Documented by Latasha Rogers, acting as a scribe for Govind Lutz MD. Provider Scribe Attestation: All medical record entries made by the Scribe were at my direction and personally dictated by me. I have reviewed the chart and agree that the record accurately reflects my personal performance of the history, physical exam, medical decision making, and the department course for this patient. I have also personally directed, reviewed, and agree with the discharge instructions and disposition. Disposition - Clinical Impression Clinical Impression: Schizophrenia - Disposition Disposition Time: 01:42 Condition: STABLE Instructions: Schizophrenia Forms: [employer] (Zambian)
[2018-10-26 02:35] VITALS: BP 131/72; PULSE 81; TEMP 98
== END 2018-10-26 02:34 | disposition home or self-care (01) ==
LOC: H.ER 21:51
DX: F20.9 Schizophrenia, unspecified (principal); F32.9 Major depressive disorder, single episode, unspecified; Z59.0 Homelessness

== ENCOUNTER 2018-10-27 23:40 | Emergency (ER) | payer OTHER ==
[2018-10-27 23:41] VITALS: BMI 27.4
[2018-10-28 00:11] VITALS: RESP 18; O2SAT 98
--- NOTE | 2018-10-28 02:38 | ED PDOC ---
HPI: CCC, URI, Sore Throat Time Seen by Provider: 10/28/18 00:06 Chief Complaint (Nursing): ENT Problem Chief Complaint (Provider): ENT Problem History Per: Patient Current Symptoms Are (Timing): Still Present Associated Symptoms: Sore Throat, Cough. denies: Nausea, Vomiting, Diarrhea Additional Complaint(s): Saqib Holder is a 23 year old male with a past medical history of schizophrenia and depression, who presents to the emergency department complaining of sore throat and cold symptoms. He states that he has been having nasal congestion for the last couple of days. Today, he states he got a sore throat and that he has been able to drink liquids. Patient also admits to having generalized malaise and body pain with minimal cough. He denies any nausea, vomiting, diarrhea, fever, shortness of breath or dizziness. PMD: Dr. Javier in [place] Past Medical History Reviewed: Historical Data, Nursing Documentation, Vital Signs Vital Signs: Last Vital Signs Temp 98.6 F 10/27/18 23:46 Pulse 94 H 10/27/18 23:46 Resp 18 10/27/18 23:46 BP 134/80 10/27/18 23:46 Pulse Ox 98 10/27/18 23:46 - Medical History PMH: Depression, Schizophrenia Denies: Diabetes, Hepatitis, HIV, HTN, Chronic Kidney Disease, Seizures, Sexually Transmitted Disease - Surgical History Surgical History: No Surg Hx - Family History Family History: States: Unknown Family Hx - Immunization History Hx Tetanus Toxoid Vaccination: No Hx Influenza Vaccination: No Hx Pneumococcal Vaccination: No - Home Medications Home Medications: Ambulatory Orders Medication Instructions Recorded Naproxen 375 mg PO BID PRN #20 tablet 07/17/18 Cephalexin [cephalexin] 500 mg PO BID 5 Days cap 08/28/18 Ibuprofen [Motrin Tab] 600 mg PO Q6 PRN 5 Days tab 08/28/18 - Allergies Allergies/Adverse Reactions: Allergies Allergy/AdvReac Type Severity Reaction Status Date / Time No Known Allergies Allergy Verified 10/28/18 00:06 Review of Systems ROS Statement: Except As Marked, All Systems Reviewed And Found Negative Constitutional: Positive for: Malaise, Other (body pain). Negative for: Fever ENT: Positive for: Nose Congestion, Throat Pain Respiratory: Positive for: Cough. Negative for: Shortness of Breath Gastrointestinal: Negative for: Nausea, Vomiting, Diarrhea Neurological: Negative for: Dizziness Physical Exam - Reviewed Nursing Documentation Reviewed: Yes Vital Signs Reviewed: Yes - Physical Exam Appears: Positive for: Non-toxic, No Acute Distress Head Exam: Positive for: ATRAUMATIC, NORMOCEPHALIC Skin: Positive for: Normal Color, Warm, Dry Eye Exam: Positive for: Normal appearance, EOMI, PERRL ENT: Positive for: TM Is/Are (ear canals are erythema bilaterally; non bulging ), Pharyngeal Erythema. Negative for: Tonsillar Exudate Cardiovascular/Chest: Positive for: Regular Rate, Rhythm. Negative for: Murmur Respiratory: Positive for: Normal Breath Sounds. Negative for: Respiratory Distress Gastrointestinal/Abdominal: Positive for: Normal Exam, Soft. Negative for: Tenderness Lymphatic: Positive for: Normal Exam Neurologic/Psych: Positive for: Alert, Oriented, Mood/Affect (affect: appropriate ) - ECG O2 Sat by Pulse Oximetry: 98 (RA) Pulse Ox Interpretation: Normal Medical Decision Making Medical Decision Making: Time: 34 Impression: likely upper respiratory infection, rule out influenza and strep Plan: --Tylenol 975 mg PO --Throat culture --[place] stat --Influenza A B --Rapid strep 0152 Flu and strep have come back negative. Pending infectious mono results. Scribe Attestation: Documented by Topher Lawrence, acting as a scribe for Melissa Wells PA-C. Provider Scribe Attestation: All medical record entries made by the Scribe were at my direction and personally dictated by me. I have reviewed the chart and agree that the record accurately reflects my personal performance of the history, physical exam, medical decision making, and the department course for this patient. I have also personally directed, reviewed, and agree with the discharge instructions and disposition. Infectious [place] negative. Pt stable for d/c home with diagnosis of URI. Disposition - Clinical Impression Clinical Impression: Upper respiratory infection - Patient ED Disposition Is Patient to be Admitted: No Counseled Patient/Family Regarding: Studies Performed - Disposition Disposition: Routine/Home Disposition Time: 02:48 Condition: STABLE Forms: [employer] (Dutch)
[2018-10-28 03:10] VITALS: BP 122/80; PULSE 99; TEMP 99.2
== END 2018-10-28 03:13 | disposition home or self-care (01) ==
LOC: H.ER 23:40
DX: J06.9 Acute upper respiratory infection, unspecified (principal)

== ENCOUNTER 2018-11-01 20:42 | Emergency (ER) | payer OTHER ==
[2018-11-01 20:42] VITALS: BMI 27.4
[2018-11-01 20:47] VITALS: BP 130/94; PULSE 89; RESP 16; TEMP 97.9; O2SAT 100
--- NOTE | 2018-11-01 21:19 | ED PDOC ---
HPI: Psych/Substance Abuse Time Seen by Provider: 11/01/18 21:14 Chief Complaint (Nursing): Psychiatric Evaluation Chief Complaint (Provider): Psychiatric Evaluation History Per: Patient History/Exam Limitations: other (poor historian) Onset/Duration Of Symptoms: Other ("a while") Additional Complaint(s): 23 year old male presents to the ED for a psychiatric evaluation. Patient states that he thinks he is schizophrenic because he has been hearing voices and "seeing shadows for a while." He notes he has seen a psychiatrist in the past of whose name he cannot remember, but has never been diagnosed with schizophrenia before, despite past charting showing schizophrenia diagnosis and pt admitting to taking risperdal. Additionally, patient reports he is currently homeless and has not slept in 4-5 days. Patient is a poor historian due to his clinical condition. PMD: none provided Past Medical History Reviewed: Historical Data, Nursing Documentation, Vital Signs Vital Signs: Last Vital Signs Temp 97.9 F 11/01/18 20:46 Pulse 89 11/01/18 20:46 Resp 16 11/01/18 20:46 BP 130/94 H 11/01/18 20:46 Pulse Ox 100 11/01/18 20:46 - Medical History PMH: Depression, HTN, Schizophrenia Denies: Diabetes, Hepatitis, HIV, Chronic Kidney Disease, Seizures, Sexually Transmitted Disease - Surgical History Surgical History: No Surg Hx - Family History Family History: States: Unknown Family Hx - Living Arrangements Living Arrangements: Other (homeless) - Immunization History Hx Tetanus Toxoid Vaccination: No Hx Influenza Vaccination: No Hx Pneumococcal Vaccination: No - Home Medications Home Medications: Ambulatory Orders Medication Instructions Recorded Naproxen 375 mg PO BID PRN #20 tablet 07/17/18 Cephalexin [cephalexin] 500 mg PO BID 5 Days cap 08/28/18 Ibuprofen [Motrin Tab] 600 mg PO Q6 PRN 5 Days tab 08/28/18 Fluticasone Propionate [Flonase] 1 spr ZEE BID PRN 5 Days bottle 10/28/18 - Allergies Allergies/Adverse Reactions: Allergies Allergy/AdvReac Type Severity Reaction Status Date / Time No Known Allergies Allergy Verified 11/01/18 20:45 Review of Systems ROS Statement: Except As Marked, All Systems Reviewed And Found Negative Psych: Positive for: Other (visual and auditory hallucinations) Physical Exam - Reviewed Nursing Documentation Reviewed: Yes Vital Signs Reviewed: Yes - Physical Exam Appears: Positive for: No Acute Distress Skin: Positive for: Normal Color Eye Exam: Positive for: Normal appearance Cardiovascular/Chest: Positive for: Regular Rate, Rhythm Respiratory: Positive for: Normal Breath Sounds. Negative for: Respiratory Distress Gastrointestinal/Abdominal: Positive for: Normal Exam, Soft. Negative for: Tenderness Extremity: Positive for: Normal ROM (all extremities) Neurologic/Psych: Positive for: Alert (and awake). Negative for: Motor/Sensory Deficits - ECG O2 Sat by Pulse Oximetry: 100 (RA) Pulse Ox Interpretation: Normal Medical Decision Making Medical Decision Making: Time: 2123 Initial Impression: psych eval Initial Plan: --Crisis evaluation Scribe Attestation: Documented by Marielos Roberts, acting as a scribe for Saqib Dior PA-C. Provider Scribe Attestation: All medical record entries made by the Scribe were at my direction and personally dictated by me. I have reviewed the chart and agree that the record accurately reflects my personal performance of the history, physical exam, medical decision making, and the department course for this patient. I have also personally directed, reviewed, and agree with the discharge instructions and disposition. Disposition - Clinical Impression Clinical Impression: Homelessness - Patient ED Disposition Is Patient to be Admitted: No Doctor Will See Patient In The: Office Counseled Patient/Family Regarding: Diagnosis - Disposition Disposition: Routine/Home Disposition Time: 22:30 Condition: STABLE Forms: [employer] (Romansh)
== END 2018-11-01 22:35 | disposition home or self-care (01) ==
LOC: H.ER 20:42
DX: Z59.0 Homelessness (principal)